=== PATIENT | male | born 1965 | race Caucasian/White ===

== ENCOUNTER → 2019-11-10 | Outpatient (REF) | payer SELFPAY | LOC: M LAB REF 09:58 | PROVIDERS: ATTEND Dermatology | DX: C44.310 Basal cell carcinoma of skin of unspecified parts of face (principal) ==

== ENCOUNTER → 2019-12-13 | Outpatient (REF) | payer SELFPAY | LOC: M LAB REF 12:41 | PROVIDERS: ATTEND Dermatology | DX: C44.310 Basal cell carcinoma of skin of unspecified parts of face (principal) ==